=== PATIENT | female | born 1950 | race Caucasian/White ===

== ENCOUNTER 2017-05-22 10:41 | Observation (INO) | payer MEDICARE, OTHER ==
[~2017-05-22] VITALS: Ht 167.6 cm; Wt 53.6 kg
--- NOTE | 2017-05-23 16:09 | NUR ---
1509 PATIENT BACK TO FLOOR FROM OR. ALERT AND ORIENTED X 3. DAUGHTER AT BEDSIDE.
== END 2017-05-23 16:30 | disposition home or self-care (01) ==
LOC: SDCH 10:41 → MED 10:43 → SDCH 05-23 12:00 → MED 05-23 16:30
PROVIDERS: ADMIT Surgery
DX: K29.50 Unspecified chronic gastritis without bleeding (principal); K44.9 Diaphragmatic hernia without obstruction or gangrene; K57.30 Diverticulosis of large intestine without perforation or abscess without bleeding; D64.9 Anemia, unspecified; E11.9 Type 2 diabetes mellitus without complications; R03.0 Elevated blood-pressure reading, without diagnosis of hypertension; Z79.82 Long term (current) use of aspirin; Z79.899 Other long term (current) drug therapy; Z86.73 Personal history of transient ischemic attack (TIA), and cerebral infarction without residual deficits; Z88.2 Allergy status to sulfonamides
CPT/HCPCS: 96374; G0378; J2704